=== PATIENT | male | born 1955 | race Caucasian/White ===

== ENCOUNTER 2016-08-06 19:58 | Emergency (ER) | payer OTHER ==
[~2016-08-06] VITALS: Ht 177.8 cm; Wt 102.1 kg
[~2016-08-06 19:58] MED LIST: LISINOPRIL20 MG PO; VIAGRA100 MG PO
--- NOTE | 2016-08-06 20:20 | ED GI/GU/ABDOMINAL COMPLAINT ---
History of Present Illness General Chief Complaint: General Adult Stated Complaint: "FUNNY FEELING IN STOMACH" Source: patient Exam Limitations: no limitations Vital Signs & Intake/Output Vital Signs & Intake/Output Vital Signs Date Time Temp Pulse Resp B/P Pulse O2 O2 Flow FiO2 Ox Delivery Rate 08/06 2204 97.4 74 16 144/86 94 Room Air 08/06 2003 97.7 76 16 183/97 96 Room Air Allergies Coded Allergies: NO KNOWN ALLERGIES (08/06/16) Reconcile Medications Aspirin (Ecotrin*) 81 MG TABLET.DR 1 TAB PO DAILY HEART/BLOOD (Reported) Cholecalciferol (Vitamin D3) (Vitamin D) (Unknown Strength) TABLET (Unknown Dose) PO DAILY SUPPLEMENT (Reported) Fenofibrate Nanocrystallized (Fenofibrate) 145 MG TABLET 1 TAB PO DAILY CHOLESTEROL/TRIGLYCERIDES (Reported) Lisinopril 20 MG TABLET 1 TAB PO DAILY BP (Reported) High View-3 Fatty Acids/Fish Oil (Fish Oil 1,000 MG Softgel) (Unknown Strength) CAPSULE (Unknown Dose) PO DAILY SUPPLEMENT (Reported) Pravastatin Sodium 80 MG TABLET 1 TAB PO DAILY CHOLESTEROL (Reported) Sildenafil Citrate (Viagra) 100 MG TABLET 1 TAB PO DAILY NEEDED PRN ED ( Reported) 1 hour before sexual activity Triage Note: PT TO ED C/O EPIGASTRIC ABD "FUNNY FEELING" AFTER LIFTING SOMETHING HEAVY YESTERDAY. INTERMITTENT ?PAIN. PMH HTN AND HLD Triage Nurses Notes Reviewed? yes Onset: Gradual Duration: day(s): Timing: recent history Quality/Severity: moderate Location: epigastric Radiation: no radiation Activities at Onset: none Modifying Factors: Improves With: rest. Worsens With: palpation. Associated Symptoms: abdominal pain HPI: 61-year-old gentleman history of hypertension presents with mid epigastric abdominal discomfort. He states that 2 days ago he was lifting his snowblower. Afterwards she felt midepigastric abdominal discomfort. "I wouldn't even call it a pain really.... it's more like a dull throb... a discomfort." He notes that his father had an aortic aneurysm with stent placement. He presents here concerned about his aorta. He notes no fever chills chest pain dizziness nausea vomiting or diarrhea. Past History Travel History Traveled to [place] past 21 day No Medical History Any Pertinent Medical History? see below for history Neurological: NONE EENT: NONE Cardiovascular: hypertension, hyperlipidemia Respiratory: NONE Gastrointestinal: NONE Hepatic: NONE Renal: NONE Musculoskeletal: NONE Psychiatric: NONE Endocrine: NONE Surgical History Surgical History: none Psychosocial History What is your primary language Bulgarian Tobacco Use: Quit >30 days ago ETOH Use: occasional use Illicit Drug Use: denies illicit drug use Family History Comment: Father with aortic aneurysm, status post stent placement. Hx Contributory? Yes Review of Systems Review of Systems Constitutional: Reports: no symptoms. EENTM: Reports: no symptoms. Respiratory: Reports: no symptoms. Cardiovascular: Reports: no symptoms. GI: Reports: no symptoms. Genitourinary: Reports: no symptoms. Musculoskeletal: Reports: no symptoms. Skin: Reports: no symptoms. Neurological/Psychological: Reports: no symptoms. Hematologic/Endocrine: Reports: no symptoms. Immunologic/Allergic: Reports: no symptoms. All Other Systems: Reviewed and Negative Physical Exam Physical Exam General Appearance: well developed/nourished, mild distress Head: atraumatic, normal appearance Eyes: Bilateral: normal appearance. Ears, Nose, Throat, Mouth: hearing grossly normal Neck: normal inspection, supple, full range of motion Respiratory: normal breath sounds, chest non-tender, no respiratory distress, quiet respiration, lungs clear Cardiovascular: regular rate/rhythm Gastrointestinal: normal bowel sounds, soft, no organomegaly, MILD MID EPIGASTRIC TENDERNESS THAT APPEARS TO BE IN HIS RECTUS MUSCULATURE. Worse with flexing his abdominal rectus muscles. tHERE ARE NO HERNIAS. nO REBOUND NO GUARDING. Back: normal inspection, normal range of motion Extremities: normal range of motion Core Measures ACS in differential dx? No Severe Sepsis Present: No Septic Shock Present: No Progress Differential Diagnosis: AAA, AMI, cholecystitis, diverticulitis, gastritis, hepatitis, pancreatitis Plan of Care: Orders Procedure Date/time Status TROPONIN LEVEL 08/06 2011 Complete LIPASE 08/06 2011 Complete COMPREHENSIVE METABOLIC PANEL 08/06 2011 Complete CBC WITHOUT DIFFERENTIAL 08/06 2011 Complete AMYLASE 08/06 2011 Complete EKG 08/06 2005 Active Laboratory Tests 08/06/16 2244: Urine Color Cancelled, Urine Clarity Cancelled, Urine pH Cancelled, Ur Specific [place] Cancelled, Urine Protein Cancelled, Urine Ketones Cancelled, Urine Nitrite Cancelled, Urine Bilirubin Cancelled, Urine Urobilinogen Cancelled, Ur Leukocyte Esterase Cancelled, Ur Microscopic Cancelled, Urine Hemoglobin Cancelled, Urine Glucose Cancelled 08/06/16 2019: Anion Gap 12, Estimated GFR 52 L, BUN/Creatinine Ratio 16.4, Glucose 144 H, Calcium 9.8, Total Bilirubin 0.5, AST 23, ALT 30, Alkaline Phosphatase 54, Troponin I < 0.01, Total Protein 7.0, Albumin 4.0, Globulin 3.0, Albumin/ Globulin Ratio 1.3, Amylase 63, Lipase 169, CBC w Diff NO MAN DIFF REQ, RBC 5.60 , MCV 89.7, MCH 30.5, RDW 13.2, MPV 6.7 L, Gran % 60.3, Lymphocytes % 28.2, Monocytes % 8.5, Eosinophils % 2.7, Basophils % 0.3, Absolute Granulocytes 5.4, Absolute Lymphocytes 2.5, Absolute Monocytes 0.8 H, Absolute Eosinophils 0.2, Absolute Basophils 0, PUBS MCHC 34.0 Diagnostic Imaging: Viewed by Me: CT Scan. Discussed w/RAD: CT Scan. Radiology Impression: abd/pelvic ct.... kidney stone noted... otherwise benign... no aneurysm. Initial ED EKG: normal axis, normal intervals, normal p-waves, normal QRS complex, normal sinus rhythm Comments: PATIENT: KIRSTY ROLDAN PRESENT AGE: 61 PATIENT ACCOUNT NO: [id number] : 55 LOCATION: [facility] ORDERING PHYSICIAN: MARILIN KAN MD SERVICE DATE: 08/06/16 EXAM TYPE: CAT - CT ABD & PELVIS W IV CONTRAST EXAMINATION: CT ABDOMEN AND PELVIS WITH CONTRAST CLINICAL INFORMATION: Mid epigastric pain. COMPARISON: CT abdomen and pelvis dated 01/24/2011. TECHNIQUE: Multidetector volumetric imaging was performed of the abdomen and pelvis before and after the IV administration of 94 mL of Optiray 320 intravenous contrast. Sagittal and coronal reformatted images were obtained on the technologist's workstation. DLP: 763.48 mGy-cm FINDINGS: LUNG BASES: The visualized lung bases are unremarkable. LIVER, GALLBLADDER, AND BILIARY TREE: The liver is normal in size, shape, and attenuation. No focal hepatic lesion or biliary ductal dilatation is present. The gallbladder is contracted, without evidence of radiopaque gallstones, gallbladder wall thickening, or obvious pericholecystic inflammatory changes. PANCREAS: Unremarkable. SPLEEN: Unremarkable. ADRENAL GLANDS: Unremarkable. KIDNEYS AND URETERS: The kidneys are normal in size, shape, and attenuation. There are low-attenuation bilateral renal probable cysts, some too small to fully characterize with CT. There are 8 mm and 7 mm nonobstructing right renal calculi. No left renal calculi are seen. There is no bilateral hydronephroureter. No perinephric stranding. BLADDER: Unremarkable. GASTROINTESTINAL TRACT: There is mild diverticulosis, without acute diverticulitis. No bowel obstruction, free intraperitoneal air or abscess is seen. The vermiform appendix is normal. ABDOMINAL WALL: There is a small fat-containing umbilical hernia. LYMPH NODES: Normal. In the anterior pelvis, a small benign, calcified mesenteric lymph node is incidentally noted. VASCULAR: There is mild aortoiliac atherosclerotic change. No abdominal aortic aneurysm is seen. PELVIC VISCERA: There is prostatomegaly, with a transverse span of 6.1 cm. The seminal vesicles are unremarkable. OSSEOUS STRUCTURES: There is marked thoracolumbar degenerative disc disease and spondylosis, most pronounced at T6-7, T7-8 and at L3-4 through L5-S1. No acute or aggressive osseous abnormality is seen. IMPRESSION: 1. There is mild diverticulosis, without acute diverticulitis. No bowel obstruction, free intraperitoneal air or abscess is seen. The vermiform appendix appears normal. 2. There are 8 mm and 7 mm nonobstructing right renal calculi. No left renal or bilateral ureteric calculi are seen. There is no bilateral hydronephroureter. 3. There is prostatomegaly. 4. There are marked thoracolumbar degenerative changes. DICTATED BY: EARL YANCEY MD DATE/TIME DICTATED:08/06/162224 RESEARCH PROGRAM ASSISTANT:BARBARA DATE/TIME TRANSCRIBED:08/06/162224 CONFIDENTIAL, DO NOT COPY WITHOUT APPROPRIATE AUTHORIZATION. <Electronically signed in Other Vendor System> SIGNED BY: EARL YANCEY MD 08/06/162236 Departure Departure Disposition: HOME OR SELF CARE Condition: Stable Clinical Impression Primary Impression: Abdominal pain Referrals: JUDY LAGOS MD (PCP/Family) Departure Forms: Customer Survey General Discharge Information Comments 08/06/16, 20:50... Discussed at length with patient. He declines pain medications. 08/06/16, 23:00... pt feeling well, no symptoms in the ED... labs benign... pt safe for discharge... close follow up advised.
[2016-08-06 20:26] LABS: ABSOLUTE BASOPHIL COUNT 0 /CUMM (0.0-0.2); ABSOLUTE EOSINOPHIL COUNT 0.2 /CUMM (0.0-0.7); ABSOLUTE GRANULOCYTE CT 5.4 /CUMM (1.4-6.5); ABSOLUTE LYMPH COUNT 2.5 /CUMM (1.2-3.4); ABSOLUTE MONOCYTE COUNT 0.8 /CUMM (0.10-0.60); BASOPHIL % 0.3 % (0.0-2.0); EOSINOPHIL % 2.7 % (0-5); GRANULOCYTE % 60.3 % (42.2-75.2); HEMATOCRIT 50.3 % (42-52); MEAN CORPUSCULAR HGB 30.5 PG (27.0-31.0); MEAN CORPUSCULAR VOLUME 89.7 FL (80.0-94.0); MEAN PLATELET VOLUME 6.7 FL (7.4-10.4); PLATELET COUNT 298 /CUMM (130-400); RBC DISTRIBUTION WIDTH 13.2 % (11.5-14.5); WHITE BLOOD CELL COUNT 8.9 /CUMM (4.8-10.8)
[2016-08-06] MEDS ORDERED: FENOFIBRATE145 M1 PO (20:48)
[2016-08-06] MEDS ORDERED: PRAVASTATIN SOD80 M2 PO (20:48)
[2016-08-06] MEDS ORDERED: LISINOPRIL20 M1 PO (20:48)
[2016-08-06] MEDS ORDERED: ASPIRIN EC81 M1 PO (20:48)
[2016-08-06] MEDS ORDERED: VIAGRA100 M1 PO (20:49)
[2016-08-06] MEDS ORDERED: FISH OIL 1,0001 EAC4 PO (20:49)
[2016-08-06] MEDS ORDERED: VITAMIN D2000 UNI1 PO (20:49)
[2016-08-06 22:05] VITALS: BP 144/86
--- NOTE | 2016-08-06 22:37 | CT SCAN REPORT ---
EXAMINATION: CT ABDOMEN AND PELVIS WITH CONTRAST CLINICAL INFORMATION: Mid epigastric pain. COMPARISON: CT abdomen and pelvis dated 01/24/2011. TECHNIQUE: Multidetector volumetric imaging was performed of the abdomen and pelvis before and after the IV administration of 94 mL of Optiray 320 intravenous contrast. Sagittal and coronal reformatted images were obtained on the technologist's workstation. DLP: 763.48 mGy-cm FINDINGS: LUNG BASES: The visualized lung bases are unremarkable. LIVER, GALLBLADDER, AND BILIARY TREE: The liver is normal in size, shape, and attenuation. No focal hepatic lesion or biliary ductal dilatation is present. The gallbladder is contracted, without evidence of radiopaque gallstones, gallbladder wall thickening, or obvious pericholecystic inflammatory changes. PANCREAS: Unremarkable. SPLEEN: Unremarkable. ADRENAL GLANDS: Unremarkable. KIDNEYS AND URETERS: The kidneys are normal in size, shape, and attenuation. There are low-attenuation bilateral renal probable cysts, some too small to fully characterize with CT. There are 8 mm and 7 mm nonobstructing right renal calculi. No left renal calculi are seen. There is no bilateral hydronephroureter. No perinephric stranding. BLADDER: Unremarkable. GASTROINTESTINAL TRACT: There is mild diverticulosis, without acute diverticulitis. No bowel obstruction, free intraperitoneal air or abscess is seen. The vermiform appendix is normal. ABDOMINAL WALL: There is a small fat-containing umbilical hernia. LYMPH NODES: Normal. In the anterior pelvis, a small benign, calcified mesenteric lymph node is incidentally noted. VASCULAR: There is mild aortoiliac atherosclerotic change. No abdominal aortic aneurysm is seen. PELVIC VISCERA: There is prostatomegaly, with a transverse span of 6.1 cm. The seminal vesicles are unremarkable. OSSEOUS STRUCTURES: There is marked thoracolumbar degenerative disc disease and spondylosis, most pronounced at T6-7, T7-8 and at L3-4 through L5-S1. No acute or aggressive osseous abnormality is seen. IMPRESSION: 1. There is mild diverticulosis, without acute diverticulitis. No bowel obstruction, free intraperitoneal air or abscess is seen. The vermiform appendix appears normal. 2. There are 8 mm and 7 mm nonobstructing right renal calculi. No left renal or bilateral ureteric calculi are seen. There is no bilateral hydronephroureter. 3. There is prostatomegaly. 4. There are marked thoracolumbar degenerative changes.
== END 2016-08-06 22:52 ==
LOC: ERH 19:58
PROVIDERS: Pediatrics
DX: R10.13 Epigastric pain (principal)
CPT/HCPCS: 74177; 93005; 93010